=== PATIENT | female | born 1990 | race Caucasian/White ===

== ENCOUNTER 2016-06-03 14:45 | Emergency (ER) | payer OTHER ==
[~2016-06-03] VITALS: Ht 167.6 cm; Wt 138.9 kg
[2016-06-03 17:12] VITALS: BP 129/59
== END 2016-06-03 17:14 | disposition home or self-care (01) ==
LOC: ED 17:08
DX: O23.11 Infections of bladder in pregnancy, first trimester (principal); O21.9 Vomiting of pregnancy, unspecified; Z3A.01 Less than 8 weeks gestation of pregnancy; Z90.49 Acquired absence of other specified parts of digestive tract
CPT/HCPCS: 81001; 87086; 99284

== ENCOUNTER 2016-06-14 14:29 | Emergency (ER) | payer OTHER ==
[~2016-06-14] VITALS: Ht 167.6 cm; Wt 137.5 kg
[2016-06-14 15:26] LABS: BLOOD UREA NITROGEN 9 mg/dL (7-18)
[2016-06-14] MEDS ORDERED: NITR100C56 PO (16:39)
[2016-06-14 17:58] VITALS: BP 137/73
== END 2016-06-14 18:01 | disposition home or self-care (01) ==
LOC: ED 16:21
DX: O26.891 Other specified pregnancy related conditions, first trimester (principal); R10.32 Left lower quadrant pain; Z3A.01 Less than 8 weeks gestation of pregnancy
CPT/HCPCS: 36415; 76801; 80048; 81001; 82040; 84702; 85025; 87086; 99285

== ENCOUNTER 2016-07-19 10:57 | Emergency (ER) | payer OTHER ==
[~2016-07-19] VITALS: Ht 167.6 cm; Wt 135.2 kg
[~2016-07-19 10:57] MED LIST: NITR100C56 PO
[2016-07-19 13:30] VITALS: BP 114/63
== END 2016-07-19 14:13 ==
LOC: ED 13:42
DX: O20.0 Threatened abortion (principal); Z3A.12 12 weeks gestation of pregnancy
CPT/HCPCS: 36415; 76801; 81001; 86901; 87086; 99285

== ENCOUNTER 2016-09-11 17:46 | Emergency (ER) | payer OTHER ==
[~2016-09-11] VITALS: Ht 152.4 cm; Wt 135.3 kg
[2016-09-11 18:49] VITALS: BP 134/67
== END 2016-09-11 19:46 | disposition home or self-care (01) ==
LOC: ED 19:25
DX: R60.0 Localized edema (principal); L55.0 Sunburn of first degree; M79.662 Pain in left lower leg
CPT/HCPCS: 99284

== ENCOUNTER 2016-10-12 19:11 | Outpatient (CLI) | payer OTHER ==
[~2016-10-12] VITALS: Ht 167.6 cm; Wt 134.5 kg
[2016-10-12 19:10] VITALS: BP 132/75
[2016-10-12] MEDS ORDERED: LACTATED RINGERS 1,000 ML IVBOLUS ONE ×2 (19:30→20:30)
[2016-10-12 20:14] LABS: ASPARTATE AMINO TRANSFERASE 11 U/L (15-37); BLOOD UREA NITROGEN 8 mg/dL (7-18)
[2016-10-12 20:25] LABS: HEMATOCRIT 39.8 % (34.6-47.8); HEMOGLOBIN 13.2 g/dL (11.7-16.4)
== END 2016-10-12 21:10 | disposition home or self-care (01) ==
LOC: LDOP 19:11
PROVIDERS: ATTEND Student in an Organized Health Care Education/Training Program
DX: O26.892 Other specified pregnancy related conditions, second trimester (principal); R10.31 Right lower quadrant pain; Z3A.23 23 weeks gestation of pregnancy
CPT/HCPCS: 36415; 59025; 80053; 81001; 82248; 82570; 82731; 84156; 84550; 85025; 87086; 96360; 96361; 99211; J7120; G0463

== ENCOUNTER 2016-11-06 15:01 | Outpatient (CLI) | payer OTHER ==
[~2016-11-06] VITALS: Ht 170.2 cm; Wt 135.5 kg
[2016-11-06 15:44] LABS: ASPARTATE AMINO TRANSFERASE 13 U/L (15-37); BLOOD UREA NITROGEN 7 mg/dL (7-18)
[2016-11-06 16:00] VITALS: BP 134/76
[2016-11-06] MEDS ORDERED: PREN1TAB60 PO (16:35)
[2016-11-06] MEDS ORDERED: ASPI-515 PO (16:36)
== END 2016-11-06 17:52 | disposition home or self-care (01) ==
LOC: LDOP 15:01
PROVIDERS: ATTEND Student in an Organized Health Care Education/Training Program
DX: O26.892 Other specified pregnancy related conditions, second trimester (principal); O11.2 Pre-existing hypertension with pre-eclampsia, second trimester; R51 Headache; Z3A.27 27 weeks gestation of pregnancy
CPT/HCPCS: 36415; 80053; 81001; 82248; 82570; 84156; 84550

== ENCOUNTER 2016-11-30 19:31 | Observation (INO) | payer OTHER ==
[~2016-11-30] VITALS: Ht 167.6 cm; Wt 136.0 kg
[~2016-11-30 19:31] MED LIST changes: +ASPI-515 PO; +PREN1TAB60 PO
[2016-11-30] MEDS ORDERED: ACETAMINOPHEN 325 MG TABLET PO PRN (20:30)
[2016-11-30 20:48] LABS: HEMATOCRIT 36.3 % (34.6-47.8); HEMOGLOBIN 12.1 g/dL (11.7-16.4); WHITE BLOOD COUNT 13.6 x10^3/uL (3.4-10)
[2016-11-30 21:00] VITALS: BP 180/92
[2016-11-30 21:00] LABS: ASPARTATE AMINO TRANSFERASE 9 U/L (15-37); BLOOD UREA NITROGEN 6 mg/dL (7-18)
[2016-11-30] MEDS ORDERED: PLEASE ENTER HEIGHT AND WEIGHT MC SCH (21:00)
[2016-11-30] MEDS: LACTATED RINGERS 1,000 ML IV SCH (21:00)
[2016-11-30 22:12] LABS: DAU SCREEN DISCLAIMER
[2016-11-30] MEDS ORDERED: LACTATED RINGERS 1,000 ML IVBOLUS ONE (23:00)
[2016-12-01] MEDS: LACTATED RINGERS 1,000 ML IV SCH ×3 (02:39→14:50)
[2016-12-01] MEDS ORDERED: CALCIUM CARBONATE 500 MG TAB.CHEW ONE (18:56)
[2016-12-01] MEDS ORDERED: ACETAMINOPHEN 325 MG TABLET ONE (22:34)
== END 2016-12-02 06:02 | disposition home or self-care (01) ==
LOC: LDOP 19:31 → LDIP 21:25
PROVIDERS: ADMIT Student in an Organized Health Care Education/Training Program; ATTEND Student in an Organized Health Care Education/Training Program
DX: O26.899 Other specified pregnancy related conditions, unspecified trimester (principal); M54.9 Dorsalgia, unspecified; Z3A.00 Weeks of gestation of pregnancy not specified
CPT/HCPCS: 36415; 59025; 80053; 80307; 81001; 81050; 82248; 82570; 84156; 84550; 85025; 87086; 96360; 96361; G0378; J7120; G0479

== ENCOUNTER 2017-01-01 16:18 | Outpatient (CLI) | payer OTHER ==
[~2017-01-01] VITALS: Ht 167.6 cm; Wt 138.6 kg
[2017-01-01 16:43] VITALS: BP 135/84
[2017-01-01 17:25] LABS: AMNI OBC PASS; AMNISURE NEGATIVE (NEGATIVE)
== END 2017-01-01 17:44 | disposition home or self-care (01) ==
LOC: LDOP 16:18
PROVIDERS: ATTEND Obstetrics & Gynecology Female Pelvic Medicine and Reconstructive Surgery
DX: O11.3 Pre-existing hypertension with pre-eclampsia, third trimester (principal); Z3A.34 34 weeks gestation of pregnancy
CPT/HCPCS: 59025; 84112; 99211; G0463

== ENCOUNTER 2017-01-08 20:58 | Outpatient (CLI) | payer OTHER ==
[~2017-01-08] VITALS: Ht 167.6 cm; Wt 140.9 kg
[2017-01-08 21:32] VITALS: BP 139/82
== END 2017-01-08 21:37 | disposition home or self-care (01) ==
LOC: LDOP 20:58
PROVIDERS: ATTEND Obstetrics & Gynecology Female Pelvic Medicine and Reconstructive Surgery
DX: O11.3 Pre-existing hypertension with pre-eclampsia, third trimester (principal); O26.893 Other specified pregnancy related conditions, third trimester; R10.9 Unspecified abdominal pain; Z3A.33 33 weeks gestation of pregnancy
CPT/HCPCS: 59025; 99211; G0463

== ENCOUNTER 2017-01-10 15:01 | Outpatient (CLI) | payer OTHER ==
[~2017-01-10] VITALS: Ht 168.9 cm; Wt 140.0 kg
[2017-01-10 15:56] LABS: HEMATOCRIT 38.2 % (34.6-47.8); HEMOGLOBIN 12.6 g/dL (11.7-16.4); WHITE BLOOD COUNT 15.6 x10^3/uL (3.4-10)
[2017-01-10 16:07] LABS: ASPARTATE AMINO TRANSFERASE 9 U/L (15-37); BLOOD UREA NITROGEN 8 mg/dL (7-18)
[2017-01-10 16:10] VITALS: BP 144/95
== END 2017-01-10 16:40 | disposition home or self-care (01) ==
LOC: LDOP 15:01
PROVIDERS: ATTEND Obstetrics & Gynecology Female Pelvic Medicine and Reconstructive Surgery
DX: O26.893 Other specified pregnancy related conditions, third trimester (principal); O11.3 Pre-existing hypertension with pre-eclampsia, third trimester; O62.9 Abnormality of forces of labor, unspecified; R10.9 Unspecified abdominal pain; Z3A.34 34 weeks gestation of pregnancy
CPT/HCPCS: 36415; 59025; 80053; 81001; 84550; 85025; 87086; 99211; G0463

== ENCOUNTER 2017-01-11 13:40 | Outpatient (CLI) | payer OTHER ==
[~2017-01-11] VITALS: Ht 168.9 cm; Wt 141.5 kg
[2017-01-11 14:02] VITALS: BP 142/88
[2017-01-11 14:13] LABS: HEMATOCRIT 37.8 % (34.6-47.8); HEMOGLOBIN 12.7 g/dL (11.7-16.4); WHITE BLOOD COUNT 13.5 x10^3/uL (3.4-10)
[2017-01-11 14:20] LABS: ASPARTATE AMINO TRANSFERASE 12 U/L (15-37); BLOOD UREA NITROGEN 6 mg/dL (7-18)
[2017-01-12] MEDS ORDERED: OXYTOCIN 30U/ 0.9% NaCL 500ML 500 ML IV SCH ×2 (13:33)
[2017-01-12] MEDS ORDERED: DOCUSATE 100 MG CAPSULE PO PRN (14:00)
[2017-01-12] MEDS ORDERED: ONDANSETRON 2MG/ML, 2ML IV PRN (14:00)
[2017-01-12] MEDS ORDERED: OXYTOCIN 10 UNITS/ML, 1ML IM PRN (14:00)
[2017-01-12] MEDS ORDERED: CARBOPROST TROMETHAMINE 250 MCG/ML, 1ML IM PRN (14:00)
[2017-01-12] MEDS ORDERED: DIPH,PERTUSS(ACELL),TET VAC/PF NC IM-VACC PRN (14:00)
[2017-01-12] MEDS ORDERED: ACETAMINOPHEN 325 MG TABLET PO PRN (14:00)
[2017-01-12] MEDS ORDERED: OXYcodone IR 5MG TABLET PO PRN (14:00)
[2017-01-12] MEDS ORDERED: OXYcodone/APAP 5/325MG TABLET PO PRN (14:00)
[2017-01-12] MEDS ORDERED: IBUPROFEN 800 MG TABLET PO PRN (14:00)
[2017-01-13] MEDS ORDERED: PRENATAL VIT/IRON/FA 1 EACH TABLET PO SCH (09:00)
[2017-01-14] MEDS ORDERED: IBUP-1223 PO (10:55)
[2017-01-14] MEDS ORDERED: OXYC-302 PO (10:55)
== END 2017-01-11 15:50 | disposition home or self-care (01) ==
LOC: LDOP 13:40
PROVIDERS: ATTEND Obstetrics & Gynecology Female Pelvic Medicine and Reconstructive Surgery
DX: O11.3 Pre-existing hypertension with pre-eclampsia, third trimester (principal); Z3A.34 34 weeks gestation of pregnancy
CPT/HCPCS: 36415; 59025; 80053; 81001; 82248; 82570; 84156; 84550; 85025; 86900; 87086; 99211; G0463

== ENCOUNTER 2018-06-07 12:51 | Emergency (ER) | payer SELFPAY ==
[~2018-06-07] VITALS: Ht 167.6 cm; Wt 127.5 kg
[~2018-06-07 12:51] MED LIST changes: +IBUP-1223 PO; +OXYC-302 PO
[2018-06-07 13:28] VITALS: BP 156/88
[2018-06-07 13:58] LABS: BASOPHILS # (AUTO) 0.07 x10^3/uL (0-0.1); BASOPHILS % (AUTO) 1 % (0-1); EOSINOPHILS # (AUTO) 0.13 x10^3/uL (0-0.4); EOSINOPHILS % (AUTO) 2 % (1-7); LYMPHOCYTES # (AUTO) 2.46 x10^3/uL (1-3.4); LYMPHOCYTES % (AUTO) 28 % (22-44); MD NO; MEAN CORPUSCULAR HEMOGLOBIN 26.4 pg (27.0-34.8); MEAN CORPUSCULAR HGB CONC 33.5 g/dL (32.4-35.8); MEAN CORPUSCULAR VOLUME 78.9 fL (80-100); MEAN PLATELET VOLUME 8.5 fL (7.4-10.4); MONOCYTES # (AUTO) 0.36 x10^3/uL (0.2-0.8); MONOCYTES % (AUTO) 4 % (2-9); NEUTROPHILS # (AUTO) 5.86 x10^3/uL (1.8-6.8); NEUTROPHILS % (AUTO) 66 % (42-75); PLATELET COUNT 321 x10^3/uL (130-400); RED BLOOD COUNT 5.71 x10^6/uL (3.82-5.3); RED CELL DISTRIBUTION WIDTH 14.7 % (9.6-15.2)
[2018-06-07 14:10] LABS: ALBUMIN 3.9 g/dL (3.4-5.0); ANION GAP 5 mmol/L (5-15); CALCIUM 9.3 mg/dL (8.5-10.1); CHLORIDE 108 mmol/L (98-107)
[2018-06-07 14:18] LABS: ALANINE AMINOTRANSFERASE 16 U/L (12-78); ALKALINE PHOSPHATASE 94 U/L (45-117); BILIRUBIN,TOTAL 0.3 mg/dL (0.2-1.0); CREATININE 0.69 mg/dL (0.55-1.02); TOTAL PROTEIN 8.2 g/dL (6.4-8.2)
--- NOTE | 2018-06-07 17:40 | NUR ---
PT HERE FOR VB X 3 DAYS. PT DENIES . PT REPROTS 2 PADS TODAY THAT ARE NOT SATURATED. PT DENIES TRUAMA OR RUFF INTERCOURSE. PT REPORTS MINIMAL PAIN AT THIS TIME. HAS HAD HX OF HEAVY MENSES.
--- NOTE | 2018-06-07 18:03 | NUR ---
Patient/Caregiver given discharge instructions and they have confirmed that they understand the instructions. Patient ambulatory with steady gait.
== END 2018-06-07 18:16 | disposition home or self-care (01) ==
LOC: ED 18:01
DX: N92.1 Excessive and frequent menstruation with irregular cycle (principal); Z90.49 Acquired absence of other specified parts of digestive tract
CPT/HCPCS: 36415; 80053; 84703; 85025; 99283

== ENCOUNTER 2018-07-09 22:37 | Emergency (ER) | payer OTHER ==
[~2018-07-09] VITALS: Ht 167.6 cm; Wt 128.5 kg
--- NOTE | 2018-07-09 23:58 | NUR ---
first contact with pt. pt c/o RUQ pain since yesteday on and off. for the past 30 mins pain worse. + N/V. described pain as constant cramping radiates to back. pt's aox4. resps even and unlabored. bp/spo2 monitors in place. call light within reach. edmd at bedside to assess.
[2018-07-10] MEDS ORDERED: SODIUM CHLORIDE FLUSH 10ML SYR IVF ONE
[2018-07-10] MEDS ORDERED: ONDANSETRON 2MG/ML, 2ML IVPush ONE
[2018-07-10] MEDS ORDERED: HYDROmorphone 2 MG/ML, 1ML IVPush PRN
--- NOTE | 2018-07-10 00:03 | NUR ---
PT TO US NOW.
[2018-07-10] MEDS ORDERED: ONDANSETRON 2MG/ML, 2ML ONE (00:05)
[2018-07-10] MEDS ORDERED: HYDROmorphone 2 MG/ML, 1ML ONE (00:05)
[2018-07-10 00:11] LABS: BASOPHILS # (AUTO) 0.06 x10^3/uL (0-0.1); BASOPHILS % (AUTO) 1 % (0-1); EOSINOPHILS # (AUTO) 0.21 x10^3/uL (0-0.4); EOSINOPHILS % (AUTO) 2 % (1-7); LYMPHOCYTES # (AUTO) 3.71 x10^3/uL (1-3.4); LYMPHOCYTES % (AUTO) 35 % (22-44); MD NO; MEAN CORPUSCULAR HEMOGLOBIN 26.5 pg (27.0-34.8); MEAN CORPUSCULAR HGB CONC 32.8 g/dL (32.4-35.8); MEAN CORPUSCULAR VOLUME 80.8 fL (80-100); MEAN PLATELET VOLUME 8.4 fL (7.4-10.4); MONOCYTES # (AUTO) 0.46 x10^3/uL (0.2-0.8); MONOCYTES % (AUTO) 4 % (2-9); NEUTROPHILS # (AUTO) 6.13 x10^3/uL (1.8-6.8); NEUTROPHILS % (AUTO) 58 % (42-75); PLATELET COUNT 320 x10^3/uL (130-400); RED BLOOD COUNT 5.16 x10^6/uL (3.82-5.3); RED CELL DISTRIBUTION WIDTH 14.4 % (9.6-15.2)
[2018-07-10 00:23] LABS: ALANINE AMINOTRANSFERASE 15 U/L (12-78); ALBUMIN 3.5 g/dL (3.4-5.0); ANION GAP 6 mmol/L (5-15); CALCIUM 8.7 mg/dL (8.5-10.1); CHLORIDE 107 mmol/L (98-107); CREATININE 0.72 mg/dL (0.55-1.02)
[2018-07-10 00:28] LABS: ALKALINE PHOSPHATASE 86 U/L (45-117); BILIRUBIN,TOTAL 0.1 mg/dL (0.2-1.0); TOTAL PROTEIN 7.6 g/dL (6.4-8.2)
[2018-07-10 00:57] LABS: MICROSCOPIC NOT IND
[2018-07-10 00:58] LABS: CULTURE INDICATED? NO
--- NOTE | 2018-07-10 01:01 | NUR ---
PT MEDICATED PER EMAR. PT TOLERATED WELL. PT'S AOX4. RESPS EVEN AND UNLABORED.
[2018-07-10 01:26] VITALS: BP 112/65
== END 2018-07-10 01:29 | disposition home or self-care (01) ==
LOC: ED 07-10 01:21
DX: R10.11 Right upper quadrant pain (principal); R10.13 Epigastric pain; R93.5 Abnormal findings on diagnostic imaging of other abdominal regions, including retroperitoneum; R11.2 Nausea with vomiting, unspecified; Z90.89 Acquired absence of other organs; Z88.6 Allergy status to analgesic agent
CPT/HCPCS: 36415; 76700; 80053; 81003; 83690; 84703; 85025; 96374; 96375; 99284; J1170; J2405

== ENCOUNTER 2019-03-24 09:55 | Emergency (ER) | payer OTHER ==
[~2019-03-24] VITALS: Ht 167.6 cm; Wt 135.2 kg
--- NOTE | 2019-03-24 10:34 | NUR ---
PT CAME IN CO OF SEVERE CRAMPING IN HER PERIUMBLICAL REGION. 7 WEEKS . DENIES VAG BLEEDING. HX OF MISCARRIAGES (6). 9TH
--- NOTE | 2019-03-24 10:54 | NUR ---
PT IN US
[2019-03-24 11:00] LABS: MICROSCOPIC NOT IND
[2019-03-24 11:05] LABS: CULTURE INDICATED? NO
[2019-03-24 11:43] VITALS: BP 119/71
[2019-03-24 12:13] LABS: BASOPHILS # (AUTO) 0.08 x10^3/uL (0-0.1); BASOPHILS % (AUTO) 1 % (0-1); EOSINOPHILS # (AUTO) 0.09 x10^3/uL (0-0.4); EOSINOPHILS % (AUTO) 1 % (1-7); LYMPHOCYTES # (AUTO) 1.78 x10^3/uL (1-3.4); LYMPHOCYTES % (AUTO) 22 % (22-44); MD NO; MEAN CORPUSCULAR HEMOGLOBIN 26.7 pg (27.0-34.8); MEAN CORPUSCULAR VOLUME 80.9 fL (80-100); MEAN PLATELET VOLUME 8.7 fL (7.4-10.4); MONOCYTES % (AUTO) 4 % (2-9); NEUTROPHILS # (AUTO) 5.94 x10^3/uL (1.8-6.8); NEUTROPHILS % (AUTO) 73 % (42-75); PLATELET COUNT 272 x10^3/uL (130-400); RED BLOOD COUNT 5.33 x10^6/uL (3.82-5.3); RED CELL DISTRIBUTION WIDTH 15.4 % (9.6-15.2)
[2019-03-24 12:24] LABS: ALBUMIN 3.4 g/dL (3.4-5.0); ANION GAP 8 mmol/L (5-15); CALCIUM 8.9 mg/dL (8.5-10.1); CHLORIDE 105 mmol/L (98-107)
[2019-03-24 12:45] LABS: CREATININE 0.72 mg/dL (0.55-1.02)
[2019-03-24] MEDS ORDERED: METHOCARBAMOL 500 MG TABLET ONE (13:35)
[2019-03-24] MEDS ORDERED: IBUPROFEN 800 MG TABLET ONE (13:35)
== END 2019-03-24 13:38 | disposition home or self-care (01) ==
LOC: ED 11:38
DX: O03.9 Complete or unspecified spontaneous abortion without complication (principal); Z90.89 Acquired absence of other organs
CPT/HCPCS: 36415; 76801; 80048; 81003; 82040; 84702; 85025; 99284

== ENCOUNTER 2019-08-14 19:24 | Emergency (ER) | payer OTHER ==
[~2019-08-14] VITALS: Ht 170.2 cm; Wt 137.3 kg
[2019-08-14 19:31] VITALS: BP 134/83
== END 2019-08-14 22:29 | disposition home or self-care (01) ==
LOC: ED 22:25
DX: O26.892 Other specified pregnancy related conditions, second trimester (principal); L55.0 Sunburn of first degree; R60.0 Localized edema; R00.0 Tachycardia, unspecified; Z3A.26 26 weeks gestation of pregnancy
CPT/HCPCS: 93970; 99284

== ENCOUNTER 2019-09-27 12:20 | Outpatient (CLI) | payer OTHER ==
[~2019-09-27] VITALS: Ht 170.2 cm; Wt 138.0 kg
[2019-09-27 12:27] VITALS: BP 138/89
[2019-09-27 12:56] LABS: MICROSCOPIC NOT IND
[2019-09-27] MEDS ORDERED: PREN1TAB28 PO (12:56)
[2019-09-27] MEDS ORDERED: ASPI-496 PO (12:56)
[2019-09-27 13:03] LABS: BASOPHILS # (AUTO) 0.05 x10^3/uL (0-0.1); BASOPHILS % (AUTO) 0 % (0-1); EOSINOPHILS # (AUTO) 0.07 x10^3/uL (0-0.4); EOSINOPHILS % (AUTO) 1 % (1-7); LYMPHOCYTES # (AUTO) 1.95 x10^3/uL (1-3.4); LYMPHOCYTES % (AUTO) 15 % (22-44); MD NO; MEAN CORPUSCULAR HEMOGLOBIN 25.6 pg (27.0-34.8); MEAN CORPUSCULAR HGB CONC 32.2 g/dL (32.4-35.8); MEAN CORPUSCULAR VOLUME 79.5 fL (80-100); MEAN PLATELET VOLUME 8.4 fL (7.4-10.4); MONOCYTES # (AUTO) 0.31 x10^3/uL (0.2-0.8); MONOCYTES % (AUTO) 2 % (2-9); NEUTROPHILS # (AUTO) 10.89 x10^3/uL (1.8-6.8); NEUTROPHILS % (AUTO) 82 % (42-75); PLATELET COUNT 290 x10^3/uL (130-400); RED BLOOD COUNT 4.59 x10^6/uL (3.82-5.3); RED CELL DISTRIBUTION WIDTH 14.4 % (9.6-15.2)
[2019-09-27 13:17] LABS: ALANINE AMINOTRANSFERASE 18 U/L (12-78); ALBUMIN 2.4 g/dL (3.4-5.0); ANION GAP 10 mmol/L (5-15); CALCIUM 8.9 mg/dL (8.5-10.1); CHLORIDE 107 mmol/L (98-107); CREATININE 0.66 mg/dL (0.55-1.02)
[2019-09-27 13:26] LABS: ALKALINE PHOSPHATASE 93 U/L (45-117); BILIRUBIN,TOTAL 0.2 mg/dL (0.2-1.0); TOTAL PROTEIN 6.9 g/dL (6.4-8.2)
== END 2019-09-27 14:53 | disposition home or self-care (01) ==
LOC: LDOP 12:20
PROVIDERS: ATTEND Obstetrics & Gynecology
DX: O16.3 Unspecified maternal hypertension, third trimester (principal); Z3A.33 33 weeks gestation of pregnancy
CPT/HCPCS: 36415; 59025; 80053; 81003; 82570; 84156; 84550; 85025

== ENCOUNTER 2019-10-11 13:32 | Outpatient (CLI) | payer OTHER ==
[~2019-10-11] VITALS: Ht 170.2 cm; Wt 139.0 kg
[~2019-10-11 13:32] MED LIST changes: +ASPI-496 PO; +PREN1TAB28 PO
[2019-10-11 14:03] LABS: MICROSCOPIC INDICATED
[2019-10-11 14:13] VITALS: BP 130/72
[2019-10-11 14:15] LABS: BASOPHILS # (AUTO) 0.03 x10^3/uL (0-0.1); BASOPHILS % (AUTO) 0 % (0-1); EOSINOPHILS # (AUTO) 0.03 x10^3/uL (0-0.4); EOSINOPHILS % (AUTO) 0 % (1-7); LYMPHOCYTES # (AUTO) 1.75 x10^3/uL (1-3.4); LYMPHOCYTES % (AUTO) 13 % (22-44); MD NO; MEAN CORPUSCULAR HEMOGLOBIN 25.6 pg (27.0-34.8); MEAN CORPUSCULAR VOLUME 77.5 fL (80-100); MEAN PLATELET VOLUME 8.7 fL (7.4-10.4); MONOCYTES # (AUTO) 0.35 x10^3/uL (0.2-0.8); MONOCYTES % (AUTO) 3 % (2-9); NEUTROPHILS # (AUTO) 11.28 x10^3/uL (1.8-6.8); NEUTROPHILS % (AUTO) 84 % (42-75); PLATELET COUNT 311 x10^3/uL (130-400); RED CELL DISTRIBUTION WIDTH 14.6 % (9.6-15.2)
[2019-10-11 14:24] LABS: ALANINE AMINOTRANSFERASE 13 U/L (12-78); ALBUMIN 2.3 g/dL (3.4-5.0); ANION GAP 9 mmol/L (5-15); CALCIUM 8.6 mg/dL (8.5-10.1); CHLORIDE 108 mmol/L (98-107); CREATININE 0.73 mg/dL (0.55-1.02)
[2019-10-11 14:26] LABS: BILIRUBIN, DIRECT < 0.1 mg/dL (0.1-0.2)
[2019-10-11 14:27] LABS: ALKALINE PHOSPHATASE 101 U/L (45-117); BILIRUBIN,TOTAL 0.3 mg/dL (0.2-1.0); TOTAL PROTEIN 7.1 g/dL (6.4-8.2)
== END 2019-10-11 16:49 | disposition home or self-care (01) ==
LOC: LDOP 13:32
PROVIDERS: ATTEND Obstetrics & Gynecology
DX: O16.3 Unspecified maternal hypertension, third trimester (principal); Z3A.35 35 weeks gestation of pregnancy
CPT/HCPCS: 36415; 59025; 76819; 80053; 81001; 82248; 82570; 84156; 84550; 85025

== ENCOUNTER 2019-10-17 11:59 | Outpatient (CLI) | payer OTHER ==
[~2019-10-17] VITALS: Ht 167.6 cm; Wt 142.6 kg
[2019-10-17 12:31] LABS: BASOPHILS # (AUTO) 0.05 x10^3/uL (0-0.1); BASOPHILS % (AUTO) 0 % (0-1); EOSINOPHILS % (AUTO) 2 % (1-7); LYMPHOCYTES # (AUTO) 2.06 x10^3/uL (1-3.4); LYMPHOCYTES % (AUTO) 17 % (22-44); MD NO; MEAN CORPUSCULAR HEMOGLOBIN 25.3 pg (27.0-34.8); MEAN CORPUSCULAR HGB CONC 32.8 g/dL (32.4-35.8); MEAN CORPUSCULAR VOLUME 77.2 fL (80-100); MEAN PLATELET VOLUME 8.5 fL (7.4-10.4); MONOCYTES # (AUTO) 0.42 x10^3/uL (0.2-0.8); MONOCYTES % (AUTO) 4 % (2-9); NEUTROPHILS # (AUTO) 9.33 x10^3/uL (1.8-6.8); NEUTROPHILS % (AUTO) 77 % (42-75); PLATELET COUNT 284 x10^3/uL (130-400); RED BLOOD COUNT 4.43 x10^6/uL (3.82-5.3); RED CELL DISTRIBUTION WIDTH 14.9 % (9.6-15.2)
[2019-10-17 12:44] LABS: ALANINE AMINOTRANSFERASE 14 U/L (12-78); ALBUMIN 2.3 g/dL (3.4-5.0); ANION GAP 6 mmol/L (5-15); CALCIUM 9.3 mg/dL (8.5-10.1); CHLORIDE 110 mmol/L (98-107); CREATININE 0.57 mg/dL (0.55-1.02)
[2019-10-17 12:46] LABS: ALKALINE PHOSPHATASE 98 U/L (45-117); BILIRUBIN,TOTAL 0.3 mg/dL (0.2-1.0); TOTAL PROTEIN 6.7 g/dL (6.4-8.2)
[2019-10-17 12:47] VITALS: BP 136/92
[2019-10-17 13:28] LABS: MICROSCOPIC INDICATED
== END 2019-10-17 13:50 | disposition home or self-care (01) ==
LOC: LDOP 11:59
PROVIDERS: ATTEND Obstetrics & Gynecology
DX: O13.3 Gestational [pregnancy-induced] hypertension without significant proteinuria, third trimester (principal); Z3A.35 35 weeks gestation of pregnancy
CPT/HCPCS: 36415; 59025; 80053; 81001; 82570; 84156; 84550; 85025

== ENCOUNTER → 2019-10-20 | Outpatient (CLI) | payer OTHER | END | disposition home or self-care (01) | LOC: STAR 11:41 | PROVIDERS: ATTEND Obstetrics & Gynecology | DX: Z01.812 Encounter for preprocedural laboratory examination (principal); Z20.828 Contact with and (suspected) exposure to other viral communicable diseases | CPT/HCPCS: 36415; 87635 ==

== ENCOUNTER 2019-10-23 13:13 | Outpatient (CLI) | payer OTHER ==
[~2019-10-23] VITALS: Ht 167.6 cm; Wt 143.2 kg
[2019-10-23 13:23] VITALS: BP 145/90
[2019-10-23 13:56] LABS: CREATININE,URINE RANDOM 96.7 mg/dL
[2019-10-23 13:59] LABS: MICROSCOPIC INDICATED
[2019-10-23 14:05] LABS: BASOPHILS # (AUTO) 0.03 x10^3/uL (0-0.1); BASOPHILS % (AUTO) 0 % (0-1); EOSINOPHILS % (AUTO) 1 % (1-7); LYMPHOCYTES # (AUTO) 2.28 x10^3/uL (1-3.4); LYMPHOCYTES % (AUTO) 18 % (22-44); MD NO; MEAN CORPUSCULAR HEMOGLOBIN 25.3 pg (27.0-34.8); MEAN CORPUSCULAR HGB CONC 33.2 g/dL (32.4-35.8); MEAN CORPUSCULAR VOLUME 76.3 fL (80-100); MEAN PLATELET VOLUME 8.8 fL (7.4-10.4); MONOCYTES # (AUTO) 0.43 x10^3/uL (0.2-0.8); MONOCYTES % (AUTO) 3 % (2-9); NEUTROPHILS # (AUTO) 10.22 x10^3/uL (1.8-6.8); NEUTROPHILS % (AUTO) 78 % (42-75); PLATELET COUNT 270 x10^3/uL (130-400); RED BLOOD COUNT 4.56 x10^6/uL (3.82-5.3)
[2019-10-23 14:14] LABS: ALANINE AMINOTRANSFERASE 15 U/L (12-78); ALBUMIN 2.3 g/dL (3.4-5.0); ANION GAP 7 mmol/L (5-15); CHLORIDE 109 mmol/L (98-107)
[2019-10-23 14:17] LABS: ALKALINE PHOSPHATASE 106 U/L (45-117); BILIRUBIN,TOTAL 0.3 mg/dL (0.2-1.0); TOTAL PROTEIN 6.8 g/dL (6.4-8.2)
[2019-10-27] MEDS ORDERED: OXYC-302 PO (11:04)
[2019-10-27] MEDS ORDERED: IBUP-1222 PO (11:04)
== END 2019-10-23 14:40 | disposition home or self-care (01) ==
LOC: LDOP 13:13
PROVIDERS: ATTEND Obstetrics & Gynecology
DX: O26.893 Other specified pregnancy related conditions, third trimester (principal); R03.0 Elevated blood-pressure reading, without diagnosis of hypertension; Z3A.36 36 weeks gestation of pregnancy
CPT/HCPCS: 36415; 59025; 80053; 81001; 82570; 84156; 84550; 85025; 87086